=== PATIENT | male | born 1960 | race Two or more races ===

== ENCOUNTER 2020-09-21 12:04 | Emergency (ER) | payer OTHER ==
[~2020-09-21] VITALS: Ht 167.6 cm; Wt 73.9 kg
[2020-09-21] MEDS ORDERED: JANUMET 50-1,01 EACH (12:30)
[2020-09-21] MEDS ORDERED: BISOPROLOL-HCT1 EACH (12:31)
[2020-09-21] MEDS ORDERED: KETO10TA2 PO (15:17)
[2020-09-21] MEDS ORDERED: SKELAXIN800 MG PO (15:17)
== END 2020-09-21 15:36 | disposition home or self-care (01) ==
LOC: ER 12:04
DX: M54.42 Lumbago with sciatica, left side (principal)